=== PATIENT | male | born 1940 | race Caucasian/White ===

== ENCOUNTER 2024-06-17 12:59 | Inpatient (IN) | payer MEDICARE, BC ==
[~2024-06-17] VITALS: Ht 177.8 cm; Wt 104.0 kg
[2024-06-17] MEDS ORDERED: PRAV40TA2 PO (13:31)
[2024-06-17] MEDS ORDERED: ENTR1TAB PO (13:31)
[2024-06-17] MEDS ORDERED: CARV3.12 PO (13:31)
[2024-06-17] MEDS ORDERED: ASPI-655 PO (13:31)
[2024-06-17] MEDS ORDERED: JANU100T PO (13:31)
[2024-06-17] MEDS ORDERED: METF-838 PO (13:31)
[2024-06-17] MEDS ORDERED: MUCI600T31 PO (13:32)
[2024-06-17 13:52] LABS: BLOOD UREA NITROGEN 18 MG/DL (9-23); CALCIUM LEVEL 7.8 MG/DL (8.3-10.6); CARBON DIOXIDE LEVEL 26 MMOL/L (20-31); CHLORIDE LEVEL 109 MMOL/L (98-107); CK-MB VALUE MASS 1.3 NG/ML (<3.6); CPK CREATINE PHOSPHOKINASE 44 U/L (46-171); CREATININE FOR GFR 0.85 MG/DL (0.70-1.30); GLOMERULAR FILTRATION RATE > 60.0 (>35); GLUCOSE, FASTING 105 MG/DL (74-106); MB/CK RELATIVE INDEX 2.95 (< OR =4); POTASSIUM SERUM 3.9 MMOL/L (3.5-5.1); SODIUM LEVEL 138 MMOL/L (136-145)
[2024-06-17 13:54] LABS: BASO # 0.1 10^3/uL (0.0-0.2); BASO % 0.5 % (0.0-1.0); EOS # 0.2 10^3/uL (0.0-0.5); EOS % 1.7 % (0.0-3.0); HEMATOCRIT 33.1 % (42.0-52.0); HEMOGLOBIN 10.6 g/dl (13.5-17.5); LYMPH % 9.6 % (24.0-44.0); MEAN CORPUSCULAR HEMOGLOBIN 30.7 pg (27.0-33.0); MEAN CORPUSCULAR VOLUME 95.9 fl (80.0-96.0); NEUTROPHILS # 8.4 10^3/uL (1.5-8.5); NEUTROPHILS % 78.2 % (36.0-66.0); PLATELET COUNT, AUTOMATED 112 10^3/uL (150-450); RED BLOOD COUNT 3.45 10^6/uL (4.30-6.10); WHITE BLOOD COUNT 10.7 10^3/uL (4.0-10.0)
[2024-06-17 13:56] LABS: THYROID STIMULATING HORMONE 0.368 uIU/ML (0.55-4.78)
[2024-06-17] MEDS ORDERED: ISOVUE-370 76% 100ML VIAL As Ordered ONE (14:14)
[2024-06-17 14:45] LABS: CK-MB VALUE MASS 1.5 NG/ML (<3.6); MB/CK RELATIVE INDEX 3.12 (< OR =4)
[2024-06-17] MEDS: INSULIN LISPRO (NovoLOG) PER UNIT SC SCH ×2 (17:30→21:00)
[2024-06-17] MEDS ORDERED: DEXTROSE 50% 50ML SYRINGE IV PRN (17:35)
[2024-06-17] MEDS ORDERED: GLUCOSE 4 GM CHEW PO PRN (17:35)
[2024-06-17] MEDS ORDERED: GLUCAGON INJ 1MG VIAL SC PRN (17:35)
[2024-06-17 18:13] LABS: FREE T3 2.6 PG/ML (2.3-4.2); FREE T4 1.22 NG/DL (0.89-1.76); THYROXINE (T4) 6.6 UG/DL (4.5-10.9)
[2024-06-17 18:14] LABS: T UPTAKE 45.8 % (22.5-37.0); THYROID STIMULATING HORMONE 0.223 uIU/ML (0.55-4.78)
[2024-06-17] MEDS ORDERED: ASPI81TA26 PO (18:31)
[2024-06-17] MEDS ORDERED: HOME MED LIST COMPLETE! XX SCH (18:35)
[2024-06-17] MEDS: POTASSIUM CHLORIDE 10MEQ SR TABLET PO ONE (19:22)
[2024-06-17] MEDS: CALCIUM GLUCONATE 1,000 MG in D5W MINI-BAG PLUS 100 ML IV ONE (20:03)
[2024-06-17 20:07] LABS: AMPHETAMINES LEVEL URINE NEGATIVE (NEGATIVE); BARBITURATES URINE NEGATIVE (NEGATIVE)
[2024-06-17 20:07] LABS: IONIZED CALCIUM 4.6 MG/DL (4.5-5.3)
[2024-06-17 20:08] LABS: BENZODIAZEPINES URINE NEGATIVE (NEGATIVE); CANNABINOIDS URINE NEGATIVE (NEGATIVE); COCAINE METABOLITE URINE NEGATIVE (NEGATIVE); METHADONE URINE NEGATIVE (NEGATIVE); OPIATES URINE NEGATIVE (NEGATIVE); PHENCYCLIDINE URINE NEGATIVE (NEGATIVE)
[2024-06-17 20:52] LABS: MAGNESIUM LEVEL 1.7 MG/DL (1.8-2.4); POTASSIUM SERUM 3.9 MMOL/L (3.5-5.1)
[2024-06-17] MEDS: MAG SULF 1GM/100ML (MAG RUN) 1 GM in IV 1 EA IV ONE (21:35)
[2024-06-17] MEDS: CARVedilol 3.125 MG TAB PO SCH (21:36)
[2024-06-17] MEDS: PRAVASTATIN 20 MG TAB PO SCH (21:36)
[2024-06-17 22:27] VITALS: BP_SYST 133; BP_SYST 134; BP_SYST 145; BP_DIAS 62; BP_DIAS 67
[2024-06-17 22:40] VITALS: BP 143/67; TEMP 97.7; O2SAT 96
[2024-06-17 22:51] LABS: CK-MB VALUE MASS 1.4 NG/ML (<3.6); MB/CK RELATIVE INDEX 2.5 (< OR =4)
[2024-06-17] MEDS: ENTRESTO 24-26MG TABLET (SACUBITRIL/VALSARTAN) PO SCH (23:12)
[2024-06-17 23:15] VITALS: BP 142/66; TEMP 97.6; O2SAT 97
[2024-06-18] VITALS (8 sets, daily range): BP systolic 112–163; BP diastolic 55–74; TEMP 97–99.5; O2SAT 96–100
[2024-06-18 08:16] LABS: IONIZED CALCIUM 4.7 MG/DL (4.5-5.3)
[2024-06-18 08:42] LABS: CPK CREATINE PHOSPHOKINASE 56 U/L (46-171)
[2024-06-18 08:47] LABS: BLOOD UREA NITROGEN 12 MG/DL (9-23); CARBON DIOXIDE LEVEL 26 MMOL/L (20-31); CHLORIDE LEVEL 109 MMOL/L (98-107); CK-MB VALUE MASS 1.7 NG/ML (<3.6); CREATININE FOR GFR 0.75 MG/DL (0.70-1.30); GLOMERULAR FILTRATION RATE > 60.0 (>35); GLUCOSE, FASTING 111 MG/DL (74-106); MAGNESIUM LEVEL 1.9 MG/DL (1.8-2.4); MB/CK RELATIVE INDEX 3.03 (< OR =4); POTASSIUM SERUM 4.1 MMOL/L (3.5-5.1); SODIUM LEVEL 140 MMOL/L (136-145)
[2024-06-18] MEDS: POTASSIUM CHLORIDE 10MEQ SR TABLET PO ONE (09:45)
[2024-06-18] MEDS: CALCIUM GLUCONATE 1,000 MG in D5W MINI-BAG PLUS 100 ML IV ONE (09:46)
[2024-06-18] MEDS: ASPIRIN 81MG CHEW TABLET PO SCH (09:46)
[2024-06-18] MEDS: MAG SULF 1GM/100ML (MAG RUN) 1 GM in IV 1 EA IV ONE (10:59)
[2024-06-18 15:00] LABS: D-DIMER QUANT 1.09 ug/mL (<0.5); INR 1.13; PARTIAL THROMBOPLASTIN TIME 29.2 SECONDS (24.8-34.2); PROTHROMBIN TIME 14.2 SECONDS (12.5-14.5)
[2024-06-18 15:02] LABS: CK-MB VALUE MASS 1.8 NG/ML (<3.6)
[2024-06-18 15:03] LABS: PERCENT SATURATION 6.4 % (19.7-50.0)
[2024-06-18 15:06] LABS: FERRITIN 182.9 NG/ML (10.5-307.3)
[2024-06-18] MEDS: ENOXAPARIN 120MG/0.8ML SYRINGE SQ SCH (15:41)
[2024-06-19 03:13] VITALS: BP 113/59; TEMP 98.1; O2SAT 95
[2024-06-19 05:05] LABS: HEMATOCRIT 35.5 % (42.0-52.0); HEMOGLOBIN 11.2 g/dl (13.5-17.5); MEAN CORPUSCULAR HEMOGLOBIN 30.2 pg (27.0-33.0); MEAN CORPUSCULAR HGB CONC 31.5 g/dl (32.0-36.5); MEAN CORPUSCULAR VOLUME 95.7 fl (80.0-96.0); PLATELET COUNT, AUTOMATED 107 10^3/uL (150-450); RED BLOOD COUNT 3.71 10^6/uL (4.30-6.10); WHITE BLOOD COUNT 7.4 10^3/uL (4.0-10.0)
[2024-06-19 05:27] LABS: BLOOD UREA NITROGEN 15 MG/DL (9-23); CALCIUM LEVEL 8.6 MG/DL (8.3-10.6); CARBON DIOXIDE LEVEL 27 MMOL/L (20-31); CHLORIDE LEVEL 109 MMOL/L (98-107); CHOLESTEROL LEVEL 110 MG/DL (<200); CHOLESTEROL RISK RATIO 3.19 (<5); GLOMERULAR FILTRATION RATE > 60.0 (>35); GLUCOSE, FASTING 131 MG/DL (74-106); HDL CHOLESTEROL 34.4 MG/DL (>40); LDL CHOLESTEROL 60.4 MG/DL (<100); NON-HDL-C 75.6 MG/DL; POTASSIUM SERUM 4.1 MMOL/L (3.5-5.1); SODIUM LEVEL 141 MMOL/L (136-145); TRIGLYCERIDES LEVEL 76 MG/DL (<150)
[2024-06-19] MEDS ORDERED: XARE20TA PO ×2 (07:13→08:53)
[2024-06-19 07:59] VITALS: BP 138/71; TEMP 97.7; O2SAT 96
[2024-06-19] MEDS ORDERED: XARE15TA PO (08:53)
[2024-06-19] MEDS ORDERED: FUROSEMIDE 20MG/2ML VIAL IV ONE (12:00)
[2024-06-22 11:47] LABS: ANA SCREEN, IFA NEGATIVE (NEGATIVE)
[2024-06-22 20:02] LABS: LYME TOTAL ANTIBODY CIA <= 0.90 Index (<=0.90)
[2024-06-22 23:53] LABS: CARDIOLIPIN IGA ANTIBODY < 2.0 APL-U/mL (<20.0); CARDIOLIPIN IGG ANTIBODY < 2.0 GPL-U/mL (<20.0); CARDIOLIPIN IGM ANTIBODY < 2.0 MPL-U/mL (<20.0)
[2024-06-23 11:09] LABS: DRVV SCREEN 44.9 SECONDS
[2024-06-23 11:40] LABS: PTT LUPUS TYPE ANTICOAG SCREEN 1.14 (0-1.20)
[2024-06-25 02:12] LABS: PROTEIN C FUNCTIONAL ACTIVITY 114 % normal (70-180); PROTEIN S FUNCTIONAL ACTIVITY 69 % normal (70-150)
[2024-06-27 05:43] LABS: ANTI THROMBIN 3 ANTIGEN IMMUNO 85 % normal (80-120); ANTI THROMBIN 3 FUNCT ACTIVITY 78 % normal (80-135)
== END 2024-06-19 12:39 | disposition home or self-care (01) | DRG 175 ==
LOC: EDBD 12:59 → M ED 12:59 → M ED INP 17:16 → M PCU 22:15
PROVIDERS: ADMIT General Practice; ATTEND General Practice
PROC: B246ZZZ Ultrasonography of Right and Left Heart (ICD-10-PCS; principal; 2024-06-18)
DX: I26.99 Other pulmonary embolism without acute cor pulmonale (principal); I50.23 Acute on chronic systolic (congestive) heart failure; R55 Syncope and collapse; I11.0 Hypertensive heart disease with heart failure; E11.9 Type 2 diabetes mellitus without complications; M19.90 Unspecified osteoarthritis, unspecified site; N28.1 Cyst of kidney, acquired; E78.5 Hyperlipidemia, unspecified; E04.2 Nontoxic multinodular goiter; Z79.82 Long term (current) use of aspirin; Z79.84 Long term (current) use of oral hypoglycemic drugs; Z79.899 Other long term (current) drug therapy

== ENCOUNTER → 2024-06-19 | Outpatient (CLI) | payer MEDICARE, BC ==
[~2024-06-19] MED LIST: ASPI-655 PO; ASPI81TA26 PO; CARV3.12 PO; ENTR1TAB PO; JANU100T PO; METF-838 PO; MUCI600T31 PO; PRAV40TA2 PO; XARE15TA PO; XARE20TA PO
== END ==
LOC: M EKG 12:45
PROVIDERS: ATTEND General Practice
DX: Z53.9 Procedure and treatment not carried out, unspecified reason (principal)

== ENCOUNTER → 2025-08-04 | Outpatient (CLI) | payer MEDICARE, BC ==
[~2025-08-04] MED LIST changes: -ASPI-655 PO; +ASPI-737 PO; -PRAV40TA2 PO; +PRAV40TA85 PO
[2025-08-04 14:37] LABS: BASO # 0.1 10^3/uL (0.0-0.2); BASO % 0.7 % (0.0-1.0); EOS # 0.2 10^3/uL (0.0-0.5); EOS % 3.2 % (0.0-3.0); LYMPH # 1.9 10^3/uL (1.5-5.0); LYMPH % 25.3 % (24.0-44.0); MONO # 0.5 10^3/uL (0.0-0.8); MONO % 6.5 % (2.0-8.0); NEUTROPHILS # 4.8 10^3/uL (1.5-8.5); NEUTROPHILS % 63.8 % (36.0-66.0); PLATELET COUNT, AUTOMATED 139 10^3/uL (150-450)
[2025-08-04 14:39] LABS: CALCIUM LEVEL 9.0 MG/DL (8.3-10.6); CARBON DIOXIDE LEVEL 28.0 MMOL/L (20-31); CHLORIDE LEVEL 105.0 MMOL/L (98-107); CREATININE FOR GFR 0.87 MG/DL (0.70-1.30); GLOMERULAR FILTRATION RATE 84.0 (>35); POTASSIUM SERUM 3.8 MMOL/L (3.5-5.1); SODIUM LEVEL 144.0 MMOL/L (136-145)
== END ==
LOC: M PLALAB 11:00
PROVIDERS: ATTEND Internal Medicine Cardiovascular Disease
DX: I10 Essential (primary) hypertension (principal); I25.10 Atherosclerotic heart disease of native coronary artery without angina pectoris